=== PATIENT | female | born 1990 | race Two or more races ===

== ENCOUNTER 2022-08-02 20:32 | Emergency (ER) | payer MEDICAID, OTHER ==
[~2022-08-02] VITALS: Ht 152.4 cm; Wt 80.4 kg
[2022-08-02 20:59] VITALS: BP 113/78
== END 2022-08-02 21:34 | disposition left against medical advice (07) ==
LOC: ER 20:47
DX: Z53.21 Procedure and treatment not carried out due to patient leaving prior to being seen by health care provider (principal)
CPT/HCPCS: 99281